=== PATIENT | female | born 1955 | race Caucasian/White ===

== ENCOUNTER 2016-05-29 16:18 | Inpatient (IN) | payer MEDICARE, MEDICAID ==
[2016-05-29 17:34] VITALS: BMI 20.7
[2016-05-29] MEDS ORDERED: MAGNESIUM HYDROXIDE 2,400 MG/10 ML CUP PO PRN (18:01)
[2016-05-29] MEDS ORDERED: ACETAMINOPHEN TAB 325 MG TAB PO PRN (18:01)
[2016-05-29] MEDS ORDERED: MAG HYDROX/AL HYDROX/SIMETH 30 ML CUP PO PRN (18:01)
[2016-05-29] MEDS: LORazepam 1 MG TAB PO PRN (18:52)
[2016-05-29] MEDS: busPIRone HCl 5 MG TAB PO SCH (21:47)
[2016-05-29] MEDS: traZODone HCL 50 MG TAB PO SCH (21:48)
[2016-05-30] MEDS: LORazepam 1 MG TAB PO PRN (07:57)
[2016-05-30 08:17] LABS: Basophils % (A) 1 %; CH 29.5; Eosinophils # (A) 0.2 k/uL (0-0.7); Eosinophils % (A) 5 %; HCT 42.4 % (34.0-46.0); HGB 13.4 gm/dL (11.4-16.0); Luc # (Auto) 0.12; Luc % (Auto) 3; Lymphocytes # (A) 0.9 k/uL (1.0-4.8); Lymphocytes % (A) 26 %; MCH 29.2 pg (25.0-35.0); MCHC 31.5 g/dL (31.0-37.0); MCV 92.7 fL (80.0-100.0); Mean Platelet Volume 7.2; Monocytes # (A) 0.3 k/uL (0-1.0); Monocytes % (A) 9 %; Neutrophils # (A) 1.9 k/uL (1.3-7.7); Neutrophils % (A) 57 %; RBC 4.57 m/uL (3.80-5.40); RDW 12.7 % (11.5-15.5); WBC 3.4 k/uL (3.8-10.6); WBC (Perox) 3.28
[2016-05-30 08:41] LABS: ALT 47 U/L (9-52); AST 21 U/L (14-36); Alkaline Phosphatase 84 U/L (38-126); Anion Gap 9 mmol/L; Blood Urea Nitrogen 18 mg/dL (7-17); Calcium 9.4 mg/dL (8.4-10.2); Carbon Dioxide 30 mmol/L (22-30); Chloride 102 mmol/L (98-107); Glucose 113 mg/dL (74-99); Non-African American GFR(MDRD) >60 (>60 ml/min/1.73 sqM); Potassium 4.2 mmol/L (3.5-5.1); Sodium 141 mmol/L (137-145); Total Bilirubin 0.5 mg/dL (0.2-1.3); Total Protein 7.5 g/dL (6.3-8.2)
[2016-05-30] MEDS: VENLAFAXINE HCL ER 150 MG CAP PO SCH (09:20)
[2016-05-30] MEDS: busPIRone HCl 5 MG TAB PO SCH (09:21)
[2016-05-30] MEDS: VENLAFAXINE HCL ER 75 MG CAP PO SCH (10:00)
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
[2016-05-30 15:52] LABS: Glucose,Whole Blood 104 mg/dL (75-99)
[2016-05-30] MEDS ORDERED: QUEtiapine 50 MG TAB PO PRN (18:10)
[2016-05-30] MEDS: traZODone HCL 50 MG TAB PO SCH (20:21)
[2016-05-30] MEDS ORDERED: LURASIDONE 40 MG TAB PO SCH (21:00)
[2016-05-31] MEDS: hydrOXYzine PAMOATE 25 MG CAP PO PRN (05:51)
[2016-05-31] MEDS: busPIRone HCl 10 MG TAB PO SCH ×2 (08:06→20:00)
[2016-05-31] MEDS: VENLAFAXINE HCL ER 150 MG CAP PO SCH (08:07)
[2016-05-31] MEDS: VENLAFAXINE HCL ER 75 MG CAP PO SCH (08:07)
[2016-05-31] MEDS: DIVALPROEX ER 250 MG TAB.ER.24H PO SCH ×2 (08:07→20:00)
[2016-05-31] MEDS: LORazepam 1 MG TAB PO PRN (08:07)
[2016-05-31 08:09] VITALS: RESP 18
--- NOTE | 2016-05-31 14:44 | P.PN ---
Progress Note - Text CLINICAL PROBLEMS: Patient endorses high anxiety and panic attacks ,reports anticipatory anxiety regarding scheduled family meeting arranged with her SO,she states that she has been feeling worse since started Latuda 4-6 weeks ago,endorses:poor concentration ,feeling tired ,no motivation or ambition. Patient denies any suicidal ideation and rates her anxiety 8/10 ,depression 6 or 7/10 ,ten being the worst I discussed treatment options and her past psychotropic medications ,patient replied "I was stable on Depakote for 14 years and since it discontinued I am having depression and my mood is not stable",patient agreed to restart Depakote instead of Latuda. PER NURSING STAFF: Patient was nervous and anxious this morning and did require 25 mg Vistaril and 1mg Ativan ,patient has demonstrated no self-harm or behavior problem,she has been attending most of groups and milieu activities MENTAL STATUS EXAM: Patient presented as casually,well groomed female,very nervous , pleasant on approach ,tearful at times,speech was spontaneous ,soft tone,goal directed,she is alert and oriented to person ,place and person,she denies suicidal ideation,denies any delusion or hallucinations,no ideas of reference or paranoia,denies hopeless feeling,thought process is organized ,insight and judgment are fair ASSESSMENT: Patient is not able to tolerate anti-psychotic as it is affecting her concentration and motivation ,denies suicidal ideation but still anxious and ruminating about her relationship with her estranged daughter PLAN: 1) Patient agreed to restart Depakote and Buspar 2) Continue Effexor 225 mg daily for depression and anxiety 3)Add Ativan as needed 4) Most likely will discharge to [facility] program Tomorrow depending on clinical response and tolerance
[2016-05-31] MEDS: traZODone HCL 50 MG TAB PO SCH (20:00)
[2016-06-01] MEDS: LORazepam 1 MG TAB PO PRN (00:49)
[2016-06-01 06:24] VITALS: BP 123/60; PULSE 94; TEMP 97.7
[2016-06-01] MEDS: VENLAFAXINE HCL ER 150 MG CAP PO SCH (08:09)
[2016-06-01] MEDS: VENLAFAXINE HCL ER 75 MG CAP PO SCH (08:09)
[2016-06-01] MEDS: busPIRone HCl 10 MG TAB PO SCH (08:09)
[2016-06-01] MEDS: DIVALPROEX ER 250 MG TAB.ER.24H PO SCH (08:09)
[2016-06-01] MEDS: hydrOXYzine PAMOATE 25 MG CAP PO PRN (12:56)
[2016-06-01] MEDS ORDERED: busPIRone HCl 5 MG TAB PO SCH (21:00)
--- NOTE | 2016-06-02 08:48 | DS ---
DATE OF ADMISSION: 05/29/2016 DATE OF DISCHARGE: 06/01/[address] Ronquillo. CONSULT REASON: Medical management. Do you want foreign law consultant provider notified? Yes. DISCHARGE DIAGNOSES: 1. Bipolar disorder type 2, depressed. 2. Anxiety with depression. HOSPITAL COURSE: Patient was admitted to the hospital on voluntary basis due to depression and suicidal ideation and high anxiety. Patient was stable on Effexor and Depakote; however, two months prior to her admission, she did discontinue after her outpatient psychiatrist's advice Depakote due to her loss and she was started on Latuda. Patient has been seeing the same outpatient psychiatrist, Dr. Diana Walsh for the last couple of years. Initially, the patient did endorse feeling depressed over especially with her relationship with estranged daughter that she has not seen her grandchildren for at least 2 years. I did restart the patient on her home medication that was including Effexor 150 mg, BuSpar 15 mg twice a day and Latuda; however, she was getting more tired, confused, complaining that not able to function or read, so I did discuss with her treatment option and she did agree to go back on her Depakote but a lower dose and I did start her on Depakote 250 twice a day. In addition, she did agree to increase her Effexor from 150 mg daily to 225 mg. Patient also continued on Trazodone 50 mg at that time for sleep. She did participate in group therapy activity therapy and was able to receive input regarding cognitive and behavior treatments. Our rn social work had family meeting with patient's significant other of one year and it sounded that he has been very supportive to the patient. For the last couple of days, patient denies any suicidal ideation or any ideation to harm herself or other; however, she was complaining of high anxiety and she always did request p.r.n. Ativan. Even she did ask me prior to her discharge if I can give her prescription for Ativan. Patient was receptive to try alternative treatment for anxiety as meditation or yoga or walking instead of depending on benzodiazepine. MENTAL STATUS EXAMINATION: At the time of discharge, patient is alert. She gives good eye contact, grooming and hygiene excellent, speech is spontaneous and coherent. She denied any homicidal or suicidal ideation, intent or plan. She does not feel hopeless or helpless. There is no evidence of hypomania or natty. There is no evidence of psychosis. Her insight and judgment are improving. Cognitive ability has been stable as she is alert and oriented to person, place and date. There is no verbal or physical aggression toward anyone during her hospitalization. At the time of the discharge, she rates her depression 3 or 4/10 and her anxiety 8/10 by 10 being the worse. IMPRESSION: 1. Bipolar disorder type 2, depressed. Rule out major depression disorder recurrent. Severe without psychosis. 2. Anxiety disorder. PLAN: Patient will discharge from the mental health unit today to return home. Patient will start day hospital [facility] on June 02 for group therapy and individual psychotherapy. Patient will continue on Effexor 225 mg daily, Trazodone 15 mg at bedtime, Depakote 250 mg twice a day, BuSpar 50 mg twice a day. There is no eminent safety risk as the patient is stable to go back to the day program.
== END 2016-06-01 13:04 | disposition home or self-care (01) | DRG 885 ==
LOC: 3MHU 16:59
PROVIDERS: ADMIT Psychiatry & Neurology Psychiatry; ATTEND Psychiatry & Neurology Psychiatry
DX: F33.2 Major depressive disorder, recurrent severe without psychotic features (principal); R45.851 Suicidal ideations; E16.2 Hypoglycemia, unspecified; D72.819 Decreased white blood cell count, unspecified; F41.0 Panic disorder [episodic paroxysmal anxiety]; F41.9 Anxiety disorder, unspecified; Z63.8 Other specified problems related to primary support group; Z86.59 Personal history of other mental and behavioral disorders; Z87.891 Personal history of nicotine dependence; Z91.5 Personal history of self-harm; Z96.641 Presence of right artificial hip joint; Z79.899 Other long term (current) drug therapy; Z82.49 Family history of ischemic heart disease and other diseases of the circulatory system
CPT/HCPCS: 80053; 80178; 84443; 85025; 93005

== ENCOUNTER 2016-06-02 16:52 | Inpatient (IN) | payer MEDICARE, OTHER ==
[2016-06-02] MEDS ORDERED: NALOXONE 0.4 MG/ML 1 ML VIAL IV PRN (17:33)
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
[2016-06-02] MEDS: SODIUM CHLORIDE 0.9% 1,000 ML IV SCH (21:29)
[2016-06-02] MEDS: ENOXAPARIN 40 MG/0.4 ML SYRINGE SQ SCH (21:32)
[2016-06-02] MEDS: VENLAFAXINE HCL ER 75 MG CAP PO SCH (21:32)
[2016-06-02] MEDS: traZODone HCL 50 MG TAB PO SCH (21:32)
[2016-06-02] MEDS: busPIRone HCl 5 MG TAB PO SCH (21:32)
[2016-06-02] MEDS: DIVALPROEX ER 250 MG TAB.ER.24H PO SCH (21:32)
[2016-06-02 21:53] VITALS: BMI 21.9
[2016-06-02] MEDS: LORazepam 2 MG/ML SYRINGE IV PRN (23:09)
[2016-06-03] MEDS: SODIUM CHLORIDE 0.9% 1,000 ML IV SCH ×2 (05:37→17:17)
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
[2016-06-03] MEDS ORDERED: VENLAFAXINE HCL ER 150 MG CAP PO SCH (09:00)
[2016-06-03] MEDS: ENOXAPARIN 40 MG/0.4 ML SYRINGE SQ SCH (09:00)
[2016-06-03] MEDS: busPIRone HCl 5 MG TAB PO SCH ×2 (09:00→21:40)
[2016-06-03] MEDS: DIVALPROEX ER 250 MG TAB.ER.24H PO SCH ×2 (09:00→21:40)
--- NOTE | 2016-06-03 15:04 | DS ---
DATE OF ADMISSION: 06/02/2016 DATE OF DISCHARGE: 06/03/2016 FINAL DIAGNOSES: 1. Bipolar type II with major depression with some suicidal ideations. 2. Acute metabolic encephalopathy from side effect of medication on presentation. 3. Anxiety disorder. 4. Mild leukopenia. 5. Primary osteoarthritis of multiple joints, bilateral. 6. Overdose with Unisom. CONSULTATION: Dr. Hoffman. HOSPITAL COURSE: This patient was just discharged from psychiatry unit, presented with acute metabolic encephalopathy. It was later discovered through her boyfriend that the patient had overdosed with Unisom at home. Patient seen by Dr. Ryder from psychiatry with whom I early discussed the care of the patient and she will be accepted to patient should be psychiatric unit. Patient will be accepted to the psychiatry unit. Patient is a bit more awake now. Did tolerate some diet. Patient has a sitter at the bedside. On exam, lungs are clear. CARDIOVASCULAR: First and second sounds are normal. CURRENT MEDICATIONS: 1. Venlafaxine ER 150 mg p.o. daily. 2. ( )50 mg p.o. b.i.d. 3. Desyrel 50 mg p.o. q.h.s. 4. Depakote ER 250 mg b.i.d. 5. Effexor XR 75 p.o. q.h.s. DISPOSITION: 3-[facility] psych unit at [facility]. ACCEPTING PHYSICIAN: Dr. Ryder from psychiatry. Patient should follow up with Keerthi Styles after discharge from [facility]. Discharge planning more than 35 minutes.
[2016-06-03] MEDS: LORazepam 2 MG/ML SYRINGE IV PRN (15:36)
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
[2016-06-03] MEDS: VENLAFAXINE HCL ER 75 MG CAP PO SCH (21:40)
[2016-06-03] MEDS: traZODone HCL 50 MG TAB PO SCH (21:41)
[2016-06-03 22:09] VITALS: BP 124/60; PULSE 78; RESP 18; TEMP 97.6
== END 2016-06-03 22:12 | DRG 917 ==
LOC: EC 16:52 → 3OBS 17:33 → OBSVTOIN 17:33 → 3SUR 20:58
PROVIDERS: ADMIT Hospitalist; ATTEND Hospitalist
DX: T45.0X4A Poisoning by antiallergic and antiemetic drugs, undetermined, initial encounter (principal); G92 Toxic encephalopathy; R45.851 Suicidal ideations; F31.81 Bipolar II disorder; D72.819 Decreased white blood cell count, unspecified; R26.2 Difficulty in walking, not elsewhere classified; F41.9 Anxiety disorder, unspecified; R53.1 Weakness; M19.91 Primary osteoarthritis, unspecified site; Z82.49 Family history of ischemic heart disease and other diseases of the circulatory system; Z87.891 Personal history of nicotine dependence; Z96.641 Presence of right artificial hip joint; Z86.39 Personal history of other endocrine, nutritional and metabolic disease; Z87.828 Personal history of other (healed) physical injury and trauma; Z79.899 Other long term (current) drug therapy; Y92.009 Unspecified place in unspecified non-institutional (private) residence as the place of occurrence of the external cause
CPT/HCPCS: 80164; 80306; 99285

== ENCOUNTER 2016-06-03 22:27 | Inpatient (IN) | payer MEDICARE, MEDICAID ==
[2016-06-04] MEDS ORDERED: MAGNESIUM HYDROXIDE 2,400 MG/10 ML CUP PO PRN (05:54)
[2016-06-04] MEDS ORDERED: MAG HYDROX/AL HYDROX/SIMETH 30 ML CUP PO PRN (05:54)
[2016-06-04] MEDS ORDERED: ACETAMINOPHEN TAB 325 MG TAB PO PRN (05:54)
[2016-06-04 06:05] VITALS: BMI 21.5
[2016-06-04] MEDS: LORazepam 1 MG TAB PO PRN ×2 (07:44→15:57)
[2016-06-04] MEDS: VENLAFAXINE HCL ER 75 MG CAP PO SCH (09:49)
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
--- NOTE | 2016-06-04 15:38 | HP ---
DATE OF ADMISSION: CHIEF COMPLAINT: Acute depression. HISTORY OF PRESENT ILLNESS: This is a 61-year-old female with past medical history significant for depression, presents to the hospital with worsening depression. Patient currently is denying chest pain, shortness breath, nausea, vomiting, abdominal pain, dizziness, lightheadedness, or blurry vision. REVIEW OF SYSTEMS: All 14 systems reviewed and negative except as above. ALLERGIES: No known drug allergies. CURRENT MEDICATIONS: 1. Tylenol as needed. 2. Ativan 1 mg every 8 hours as needed. 3. Effexor 225 mg p.o. daily. 4. Seroquel 50 mg q.h.s. Patient said that she was taking Effexor, buspirone, Latuda and BuSpar at home. PAST MEDICAL AND SURGICAL HISTORY: 1. Bipolar disorder. 2. Anxiety. 3. Depression. 4. Partial right hip arthroplasty. SOCIAL HISTORY: The patient quit smoking 30 years ago. Denied alcohol or drug abuse. FAMILY HISTORY: Positive for alcoholism in her father. Hypertension and congestive heart failure and healthy daughter. Patient is . IMAGING AND LABS: None. PHYSICAL EXAMINATION: VITAL SIGNS: 97.9, heart rate of 85, respiratory rate 15, blood pressure 116/74 and saturations above 90% on room air. GENERAL: In her stated age, no acute distress. HEENT: Atraumatic, normocephalic. PERRLA. LUNGS: Clear to auscultation bilaterally. HEART: Normal S1, S2. ABDOMEN: Soft, no tenderness. Positive bowel sounds in all 4 quadrants. LOWER EXTREMITY: No edema. PSYCH: Alert and oriented x3, relaxed mood and affect. NEURO: No focal deficit. Cranial nerves 2 through 12 are intact. ASSESSMENT AND PLAN: 1. Acute depression. We will continue per your recommendation. 2. Anxiety, on Ativan. 3. History of partial right hip arthroplasty, seems to be no pain. We will follow up on the patient on periodic basis per your request.
[2016-06-04] MEDS: QUEtiapine 50 MG TAB PO SCH (21:03)
[2016-06-05] MEDS: VENLAFAXINE HCL ER 75 MG CAP PO SCH (08:36)
[2016-06-05] MEDS: LORazepam 1 MG TAB PO PRN ×2 (08:49→16:54)
--- NOTE | 2016-06-05 13:26 | P.PN ---
Progress Note - Text SUBJECTIVE: She complained of feeling "extremely depressed", helpless and hopeless. She has not been attending group activities because she stated she is unable to concentrate or follow the group conversation. She slept well last night with a 50 mg dose of Seroquel. She inquired about her prior medications and requested to continue with Depakote. We discussed bedtime dosing regimen then split dosing. OBJECTIVE: She presented as a thin almost emaciated. Appearing 61-year-old female. She maintained eye contact and attended to the interview. She had a distressed facial expression. She was alert and oriented to person, place and time. She showed psychomotor retardation but no abnormal movements. Her gait was slow but steady. She began to cry during the interview when she talked about her family particularly her mother and father. Her speech was spontaneous with decreased rate, rhythm and volume. Her affect was depressed and anxious. She denied current suicidal ideation or wishes. She denied homicidal ideation. She expressed depressive cognitions including helplessness , hopelessness and worthlessness. She complained of feeling anxious and restless. She denied ideas of reference or paranoid ideation. Her thinking was concrete but her associations were coherent and logical. ASSESSMENT: She continues to have severe symptoms of depression but is currently denying suicidal ideation or wishes. She has shown minimal response to treatment since admission. PLAN: Continue Effexor XR 225 mg daily and Seroquel 50 mg at bedtime, restart Depakote 500 mg at bedtime. Continue suicide precautions with 15 minute checks. Encourage participation in therapeutic groups and activities. Evaluate clinical status and response to treatment on a daily basis.
[2016-06-05] MEDS: QUEtiapine 50 MG TAB PO SCH (20:55)
[2016-06-05] MEDS ORDERED: DIVALPROEX ER 500 MG TAB.ER.24H PO SCH (21:00)
[2016-06-06] MEDS: LORazepam 0.5 MG TAB PO PRN (09:48)
[2016-06-06] MEDS: VENLAFAXINE HCL ER 75 MG CAP PO SCH ×2 (09:58→11:08)
[2016-06-06] MEDS ORDERED: VENLAFAXINE HCL ER 75 MG CAP PO STA (11:08)
--- NOTE | 2016-06-06 13:39 | P.PN ---
Subjective Principal diagnosis: SUBJECTIVE: She complained of feeling depressed ,confused helpless and hopeless. She has not been attending group activities because she stated she is unable to concentrate or follow the group conversation. She slept well last night with a 50 mg dose of Seroquel. She stated that her boyfriend visited her last night and her daughter called her "That is why I felt better last night ", she could not recall today date ,more forgetful since she overdosed on Unisom, she endorses passive suicidal ideation saying "I want to go to sleep and not waking up",she stated that she was hearing noises last couple of days,she endorses high anxiety and "Feeling paralysed with anxiety,I need higher dose of Ativan". OBJECTIVE: 61-year-old female maintained eye contact and attended to the interview. She was alert and oriented to person, place and time. She showed psychomotor retardation but no abnormal movements. Her gait was slow but steady. She was tearful talking about relationship with daughter. Her speech was spontaneous with decreased rate, rhythm and volume. Her affect was depressed and anxious. She endorses passive wishes. She denied homicidal ideation. She expressed depressive cognitions including helplessness, hopelessness and worthlessness. She complained of feeling anxious and confused She denied ideas of reference or paranoid ideation. She denies any visual or auditory hallucination,insight and judgment are limited ASSESSMENT: She continues to have severe symptoms of depression and anxiety , PLAN: Increase Effexor XR 300 mg daily ,continue Seroquel 50 mg at bedtime, Increased Depakote 750 mg at bedtime. Continue suicide precautions with 15 minute checks. Encourage participation in therapeutic groups and activities. Evaluate clinical status and response to treatment on a daily basis.I called patient boyfriend who stated that patient had at least 3-4 previous suicidal attempts over last 15 years but "Always minimizing it " Objective - Vital Signs Vital signs: Vital Signs Temp 98.0 F 06/06/16 07:06 Pulse 79 06/06/16 07:06 Resp 18 06/06/16 07:06 BP 115/57 06/06/16 07:06 Pulse Ox
[2016-06-06] MEDS: QUEtiapine 50 MG TAB PO SCH (20:17)
[2016-06-06] MEDS ORDERED: DIVALPROEX ER 250 MG TAB.ER.24H PO SCH (21:00)
[2016-06-07] MEDS: LORazepam 0.5 MG TAB PO PRN ×2 (08:29→16:47)
[2016-06-07] MEDS: VENLAFAXINE HCL ER 75 MG CAP PO SCH (08:29)
--- NOTE | 2016-06-07 14:00 | P.PN ---
Subjective SUBJECTIVE: Patient endorses hopeless ,helpless feeling , wish,isolating herself , crying episodes,no interest ,poor appetite ,laying in bed most of day ,minimal participation in milieu activities,endorses high anxiety and fear of "Not getting better",reports poor concentration and "Very foggy",trembling feeling and not able to maintain her attention Patient was agitated and irritable this morning ,she said"I Threw by breakfast tray ,I am having bad anxiety and no one helping me" OBJECTIVE: 61-year-old female maintained eye contact and attended to the interview. She was alert and oriented to person, place and time. She showed psychomotor agitation abnormal movements. Her gait was slow but steady. She was sobbing . Her speech was spontaneous with decreased rate, rhythm and volume. Her affect was depressed and anxious. She endorses passive wishes. She denied homicidal ideation. She expressed depressive cognitions including helplessness, hopelessness and worthlessness. She complained of feeling anxious and confused She denied ideas of reference or paranoid ideation. She denies any visual or auditory hallucination,insight and judgment are limited. ASSESSMENT: Patient endorses severe depression and suicidal ideation ,no change in her clinical status since her admission ,patient presents with pattern of instable mood ,feeling helpless when alone and needs others to assume responsibility to make feel better PLAN: Continue Effexor and Seroquel ,same dose ,discontinue Depakote and start [place] ,PRN Ativan ,will try to have collateral information from her outpatient counselor at [facility],encourage milieu participation Objective - Vital Signs Vital signs: Vital Signs Temp 98.3 F 06/07/16 06:31 Pulse 106 H 06/07/16 06:31 Resp 16 06/07/16 06:31 BP 106/56 06/07/16 06:31 Pulse Ox
[2016-06-07] MEDS: QUEtiapine 50 MG TAB PO SCH (21:35)
[2016-06-07] MEDS: LITHIUM CARBONATE 150 MG CAP PO SCH (21:35)
[2016-06-08] MEDS: VENLAFAXINE HCL ER 75 MG CAP PO SCH (08:41)
[2016-06-08] MEDS: LITHIUM CARBONATE 150 MG CAP PO SCH (08:41)
[2016-06-08] MEDS: LORazepam 0.5 MG TAB PO PRN ×2 (08:47→18:25)
--- NOTE | 2016-06-08 09:34 | P.PN ---
Subjective Principal diagnosis: SUBJECTIVE: She complained of feeling depressed , helpless and hopeless this morning "I wake up with very bad anxiety and I just want to stay in bed " ,she reports that she was doing better last evening and was able to concentrate playing cards and "I enjoyed it but now I am back feeling hopeless",,,able to sleep with Seroquel ,still asking for PRN Ativan ,at least 2-3 times ,reports having difficulty making simple decision ,self doubt and feeling detached from others OBJECTIVE: 61-year-old female maintained eye contact and attended to the interview. She was alert and oriented to person, place and time. She showed psychomotor retardation but no abnormal movements. Her gait was slow but steady. Her speech was spontaneous with decreased rate, rhythm and volume. Her affect was depressed and anxious. She endorses passive wishes. She denied homicidal ideation. She expressed depressive cognitions including helplessness, hopelessness and worthlessness. She complained of feeling anxious and confused She denied ideas of reference or paranoid ideation. She denies any visual or auditory hallucination,insight and judgment are limited.No anger outburst or behavior problem ASSESSMENT: She continues to have severe symptoms of depression and anxiety , diurnal variation ,lot of dependency issues,still requesting PRN Ativan, not motivated to take active role in her treatment PLAN:Continue Effexor and Seroquel ,same ,Increase [place] ,will check level in 2-3 days ,encourage groups participation Objective - Vital Signs Vital signs: Vital Signs Temp 98.3 F 06/08/16 05:36 Pulse 101 H 06/08/16 05:36 Resp 18 06/08/16 05:36 BP 107/53 06/08/16 05:36 Pulse Ox
[2016-06-08] MEDS: LITHIUM CARBONATE 300 MG CAP PO SCH (20:15)
[2016-06-08] MEDS: QUEtiapine 50 MG TAB PO SCH (20:15)
[2016-06-09] MEDS: LITHIUM CARBONATE 300 MG CAP PO SCH ×2 (09:12→20:11)
[2016-06-09] MEDS: VENLAFAXINE HCL ER 75 MG CAP PO SCH (09:12)
[2016-06-09] MEDS: CHOLECALCIFEROL 1,000 UNIT TAB PO SCH (09:12)
[2016-06-09 12:35] LABS: Lithium 0.8 mmol/L
[2016-06-09] MEDS: LORazepam 0.5 MG TAB PO PRN (15:44)
--- NOTE | 2016-06-09 16:41 | P.PN ---
Subjective SUBJECTIVE: Patient stated "I am the same ,very bad depression ,I do not know what to do with myself",hopeless ,helpless ,tearful , Patient has been labile ,lot of dependency issue,she stated that her boy friend came to visit yesterday but "I did not have any feeling ,I was blah",rates her anxiety and depression ,both 12/22 OBJECTIVE: 61-year-old female maintained eye contact and attended to the interview. She was alert and oriented to person, place and time. She showed psychomotor retardation but no abnormal movements. Her gait was slow but steady. Her speech was spontaneous with decreased rate, rhythm and volume. Her affect was depressed and anxious. She endorses passive wishes. She denied homicidal ideation. She expressed depressive cognitions including helplessness, hopelessness and worthlessness. She complained of feeling anxious and confused She denied ideas of reference or paranoid ideation. She denies any visual or auditory hallucination,insight and judgment are limited.No anger outburst or behavior problem PER NURSING STAFF:"Patient feeling sad and depressed and so tearful. Supported patient and offered ideas on support groups and hobbies and diversional activities. The person did listen but then said "I feel so bad I am going in a dark place." Again reenforced the positives and also gave Ativan 1 mg po prn give ASSESSMENT: She continues to have severe symptoms of depression and anxiety , diurnal variation ,lot of dependency issues,still requesting PRN Ativan, not motivated to take active role in her treatment PLAN:Continue Effexor and Seroquel ,same ,check lithium and TSH ,encourage groups participation Objective - Vital Signs Vital signs: Vital Signs Temp 98.2 F 06/09/16 06:45 Pulse 95 06/09/16 15:47 Resp 18 06/09/16 15:47 BP 128/57 06/09/16 15:47 Pulse Ox
[2016-06-09] MEDS: QUEtiapine 50 MG TAB PO SCH (20:11)
[2016-06-10] MEDS: LORazepam 0.5 MG TAB PO PRN ×2 (04:26→17:00)
[2016-06-10] MEDS: LITHIUM CARBONATE 300 MG CAP PO SCH ×2 (08:54→18:21)
[2016-06-10] MEDS: VENLAFAXINE HCL ER 75 MG CAP PO SCH (09:54)
--- NOTE | 2016-06-10 10:16 | P.PN ---
Subjective SUBJECTIVE: "I AM STILL DEPRESSED ESPECIALLY IN MORNING",she reports that she is afraid that she will never get better and "My boyfriend will leave me because of my mental illness",she endorses:crying episodes,poor concentration ,no energy , helpless and hopeless ,still having trouble staying asleep and was up at 4 AM with "BAD ANXIETY",participating in groups and milieu activities,able to contract for safety inside hospital. We discussed suicide safety plan but she states that "I do not feel comfortable to go home ,I am scared to be3 home on my own" PER NURSING STAFF: Patient was sobbing ,irritable and did require PRN Ativan after lunch yesterday OBJECTIVE: 61-year-old female maintained eye contact and attended to the interview. She was alert and oriented to person, place and time. She showed psychomotor retardation but no abnormal movements. Her gait was slow but steady. Her speech was spontaneous with decreased rate, rhythm and volume. Her affect was depressed and anxious. She endorses passive wishes. She denied homicidal ideation. She expressed depressive cognitions including helplessness, hopelessness and worthlessness. She complained of feeling anxious and has self doubt She denied ideas of reference or paranoid ideation. She denies any visual or auditory hallucination,insight and judgment are limited.No anger outburst or behavior problem ASSESSMENT: She continues to have severe symptoms of depression and anxiety , diurnal variation ,lot of dependency issues,still requesting PRN Ativan, not motivated to take active role in her treatment PLAN:,1) Increase [place] level:0.8 , will check lithium level again on Monday 2)Change Seroquel to XR ,continue Effexor 300 mg 3) Encourage groups participation and how to take active role in her treatment Objective - Vital Signs Vital signs: Vital Signs Temp 97.4 F L 06/10/16 05:23 Pulse 94 06/10/16 05:23 Resp 15 06/10/16 05:23 BP 97/56 06/10/16 05:23 Pulse Ox
[2016-06-10] MEDS: CHOLECALCIFEROL 1,000 UNIT TAB PO SCH (12:54)
[2016-06-10] MEDS ORDERED: LITHIUM CARBONATE ER 450 MG TABLET.ER PO SCH (21:00)
[2016-06-11] MEDS: LITHIUM CARBONATE ER 450 MG TABLET.ER PO SCH (09:39)
[2016-06-11] MEDS: VENLAFAXINE HCL ER 75 MG CAP PO SCH (09:39)
[2016-06-11] MEDS: LORazepam 0.5 MG TAB PO PRN (11:28)
--- NOTE | 2016-06-11 12:03 | P.PN ---
Progress Note - Text Interval history: Patient seen in cross coverage today for Dr. Ryder. She reports that she feels depressed today. She says the first couple nights was Seroquel XR she slept better, but the last 2 nights not as well. She does not seem to voice any adverse psychotropic medication side effects. Her Effexor XR and lithium have been increased. She describes having an episode earlier today in group where she just felt overwhelmed Mental status exam: She is alert and cooperative with the interview. Her speech is fluent, not rapid or pressured. Her affect overall is restricted. Her mood is depressed. Regarding thoughts of suicide she relays that she has some thoughts at times about just wanting to go to sleep, but no actual thoughts of suicide. She denies any thoughts of harm to others. No evidence of psychosis or agitation. Plan: Patient will maintain current psychotropic medications. She is given further education and encouragement. We will monitor for any medication side effects and monitor her ongoing response. We'll continue to cover this patient for Dr. Ryder through the weekend.
[2016-06-11] MEDS: CHOLECALCIFEROL 1,000 UNIT TAB PO SCH (12:35)
[2016-06-11] MEDS: LITHIUM CARBONATE 300 MG CAP PO SCH (18:39)
[2016-06-12] MEDS: LORazepam 0.5 MG TAB PO PRN ×3 (04:18→20:58)
[2016-06-12] MEDS: LITHIUM CARBONATE ER 450 MG TABLET.ER PO SCH (09:25)
[2016-06-12] MEDS: VENLAFAXINE HCL ER 75 MG CAP PO SCH (09:25)
[2016-06-12] MEDS: CHOLECALCIFEROL 1,000 UNIT TAB PO SCH (12:22)
--- NOTE | 2016-06-12 12:39 | P.PN ---
Progress Note - Text Interval history: Patient is seen in cross coverage today for Dr. Ryder. She reports that her mood is a little better today compared to yesterday. It was more down early this morning and she reports she had some thoughts about not waking up, but currently is doing better. She reports that she didn't sleep well again last night. She does not seem to voice any adverse psychotropic medication side effects. She does seem to continue describe some anxiety. Mental status exam: She is alert and cooperative with the interview. She does not show any agitation. Her mood she describes is better today but still depressed and feels like her mood still could be better. She denies any current thoughts of harm to self or others. No active evidence of psychosis. She does show some range of affect. Plan: We'll titrate up on Seroquel XR to 100 mg at 7 PM to help augment regarding depression and would look for this also to help her with sleep. Maintain other current psychotropic medication regimen. Dr. Ryder to resume care this patient starting tomorrow.
--- NOTE | 2016-06-12 12:58 | P.PN ---
Progress Note - Text Addendum note: Met with patient again to discuss interaction of Seroquel XR and Effexor XR in terms of risk of prolongation of QT interval. Patient's QTC was 447, not prolonged on recent EKG. Discussed with patient regarding monitoring for any abnormalities side effect [place] as well as continuing to monitor the EKG on follow-up with this medication combination.
[2016-06-12] MEDS: LITHIUM CARBONATE 300 MG CAP PO SCH (19:27)
[2016-06-13] MEDS: VENLAFAXINE HCL ER 75 MG CAP PO SCH (08:58)
[2016-06-13] MEDS: LITHIUM CARBONATE ER 450 MG TABLET.ER PO SCH (08:58)
[2016-06-13] MEDS: CHOLECALCIFEROL 1,000 UNIT TAB PO SCH (09:00)
[2016-06-13] MEDS: LORazepam 0.5 MG TAB PO PRN ×2 (11:14→20:44)
[2016-06-13 11:16] VITALS: RESP 18
[2016-06-13] MEDS ORDERED: LORazepam 0.5 MG TAB PO STA (12:04)
--- NOTE | 2016-06-13 14:55 | P.PN ---
Progress Note - Text Interval history: She reports that she feels less depressed today. She says the first couple nights was Seroquel XR she slept better, but the last 2 nights not as well. She does not seem to voice any adverse psychotropic medication side effects. She endorses high anxiety and has been taking up to 0.5 mg TID PRN Ativan,lot of dependency issues Mental status exam: She is alert and cooperative with the interview. Her speech is fluent, not rapid or pressured. Her affect overall is restricted. Her mood is depressed. She denies thoughts of suicide. She denies any thoughts of harm to others. No evidence of psychosis or agitation. Plan: Patient will maintain current psychotropic medications. She is given further education and encouragement. We will monitor for any medication side effects Met with patient ,boyfriend and SW :discussed post-discharge plan and boyfriend will dispense medications on daily basis.Boy friend does feel comfortable regarding discharge
[2016-06-13] MEDS: LITHIUM CARBONATE 300 MG CAP PO SCH (18:50)
[2016-06-14 06:13] VITALS: BP 116/60; PULSE 102; TEMP 98.2
[2016-06-14] MEDS: LORazepam 0.5 MG TAB PO PRN (07:22)
--- NOTE | 2016-06-14 11:10 | DS ---
DATE OF ADMISSION: 06/03/2016 DATE OF DISCHARGE: 06/14/2016 CONSULT PHYSICIAN: Melyssa. CONSULTING PROVIDER: Dr. Jannette Carreon Consult reason is for medical management. DISCHARGE DIAGNOSES: 1. Major depression, recurrent, severe without psychotic feature in early remission. 2. History of bipolar disorder, type I2, depressed, without psychotic feature. 3. Cluster B personality trait B. 4. Anxiety disorder. BRIEF SUMMARY OF THE ADMISSION NOTE: Patient was admitted to the medical health unit from the medical floor after being seen in psychiatric consultation. Patient was recently on the mental health unit with depression and anxiety and was discharged with the postdischarge plan to start [facility] [facility] program; however, she was complaining of not able to sleep and she took "handful of [place]." For complete history and physical examination please refer to history and physical examination dictated by Dr. Murphy. HOSPITAL COURSE: Patient was admitted on voluntary basis. She presented with severe depression without any evidence of psychosis and very high anxiety. She was started back on her Effexor that was increased from 225 to 300 mg daily and we discontinued Depakote and trazodone, and we did start her on combination of Seroquel for sleep and also as augmentation for her depression. Patient has a lot of dependency issues and for the first 4 or 5 days she was just crying, sobbing, asking for Ativan more often. She did agree to start lithium after complete work-up and we did check her lithium 1evel, it came back on 600 mg daily 0.8, so I did adjust the lithium again to 450 mg in the morning and 300 at bedtime instead of 300 twice a day. Patient was able to tolerate Effexor and lithium without having any complaint from side effect. However, she was still having trouble staying asleep and she was waking up in the morning with severe anxiety, so we did change the regular Seroquel to Seroquel XR and we increased it to Seroquel XR 100 mg at bedtime to control her anxiety and also to restore her sleep. I did discuss in detail interaction of Seroquel XR and Effexor-XR in term of prolongation of QT. Her QT was not prolonged on the recent EKG, but we did discuss in detail to monitor for any abnormality of side effect and also to continue to monitor her EKG as outpatient, especially with the combination of Effexor and Seroquel XR. Patient did verbalize understanding. The patient was requesting Ativan more often than usual, so we did cut down the Ativan, instead of 1 mg 3 times a day as needed to just 0.5 three times p.r.n. Patient started to participate in group therapy and for 4 days prior to her discharge, her mood was stable, there is no anger outbursts or irritability, was able to sleep through the night with the Seroquel XR 100 mg at bedtime. She participated in our session and was able to receive input regarding cognitive reframing and old assumption that she may be ( ). I had family meeting with her boyfriend who is living in the same building and he stated that he does feel comfortable regarding patient discharge. Also, he will be the one to dispense patient medication on daily basis. Psychoeducation about patient mental illness was offered and patient did agree about the postdischarge plan to start [facility]. However, even prior to her discharge, she did ask for Ativan for her anxiety. The mental status examination at the time of the discharge, patient is alert. She gives good eye contact, excellent grooming and hygiene. Speech is spontaneous. Thought process is linear. She denied any homicidal or suicidal ideation, intent or plan. She does not feel hopeless or helpless. She does not have access to firearms. She did demonstrate future-oriented thinking, listing a number of things she wishes to accomplish after discharge. There is no evidence of hypomania or natty. There is no evidence of psychosis. She did rate her depression 3/10, 10 being the worse and her anxiety 5 or 6/10, 10 being the worst. Her insight and judgment are improving. Her cognitive abilities have remained stable across the hospitalization as she is alert, oriented to person, place and date. PLAN: 1. Patient was discharged this morning and she has been taken appointment at [facility] to start partial day program. 2. Patient was given one week supply of Ativan 0.5 three times a day as needed p.r.n. #21 tablet. 3. Effexor 300 mg daily for depression and anxiety for one-month supply. 4. [place] carbonate extended release 450 mg in the morning and lithium carbonate 300 at bedtime, one-month supply. 5. Seroquel XR 100 mg at 7 p.m. one-month supply. 6. The patient is no eminent safety risk for transition back to outpatient care. I did discuss with her suicidal safety plan and she was instructed to return to the emergency room with any acute safety concerns. Prognosis fair with continued treatment and followup with our recommendation.
== END 2016-06-14 07:52 | disposition home or self-care (01) | DRG 885 ==
LOC: 3MHU 22:27
PROVIDERS: ADMIT Psychiatry & Neurology Psychiatry; ATTEND Psychiatry & Neurology Psychiatry
DX: F33.2 Major depressive disorder, recurrent severe without psychotic features (principal); G93.41 Metabolic encephalopathy; F03.90 Unspecified dementia, unspecified severity, without behavioral disturbance, psychotic disturbance, mood disturbance, and anxiety; R45.851 Suicidal ideations; F41.9 Anxiety disorder, unspecified; M19.91 Primary osteoarthritis, unspecified site; D72.819 Decreased white blood cell count, unspecified; Z87.891 Personal history of nicotine dependence; Z91.5 Personal history of self-harm; Z86.59 Personal history of other mental and behavioral disorders; Z81.8 Family history of other mental and behavioral disorders; Z96.641 Presence of right artificial hip joint; Z81.1 Family history of alcohol abuse and dependence; Z82.49 Family history of ischemic heart disease and other diseases of the circulatory system; Z79.899 Other long term (current) drug therapy; Z63.79 Other stressful life events affecting family and household; Z63.8 Other specified problems related to primary support group; Z86.39 Personal history of other endocrine, nutritional and metabolic disease
CPT/HCPCS: 80178; 84443; 93005

== ENCOUNTER 2016-08-20 12:10 | Emergency (ER) | payer MEDICARE, OTHER ==
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
[2016-08-20 18:14] LABS: Basophils % (A) 0 %; CH 30.6; CHCM 32.1; Eosinophils % (A) 0 %; HDW 2.19; Luc # (Auto) 0.08; Luc % (Auto) 1; Lymphocytes # (A) 1.1 k/uL (1.0-4.8); Lymphocytes % (A) 15 %; MCH 31.1 pg (25.0-35.0); MCHC 32.5 g/dL (31.0-37.0); MCV 95.6 fL (80.0-100.0); Mean Platelet Volume 6.7; Monocytes # (A) 0.4 k/uL (0-1.0); Monocytes % (A) 6 %; Neutrophils # (A) 5.7 k/uL (1.3-7.7); Neutrophils % (A) 77 %; RBC 4.49 m/uL (3.80-5.40); RDW 13.6 % (11.5-15.5); WBC 7.4 k/uL (3.8-10.6); WBC (Perox) 7.53
[2016-08-20 18:31] LABS: ALT 14 U/L (9-52); AST 22 U/L (14-36); Alkaline Phosphatase 58 U/L (38-126); Anion Gap 8 mmol/L; Blood Urea Nitrogen 10 mg/dL (7-17); Calcium 9.6 mg/dL (8.4-10.2); Carbon Dioxide 32 mmol/L (22-30); Chloride 97 mmol/L (98-107); Glucose 167 mg/dL (74-99); Non-African American GFR(MDRD) >60 (>60 ml/min/1.73 sqM); Potassium 3.7 mmol/L (3.5-5.1); Sodium 137 mmol/L (137-145); Total Bilirubin 0.4 mg/dL (0.2-1.3); Total Protein 6.9 g/dL (6.3-8.2)
[2016-08-20] MEDS ORDERED: traZODone HCL 100 MG TAB PO STA (21:17)
[2016-08-20] MEDS ORDERED: clonazePAM 0.5 MG TAB PO STA (21:17)
[2016-08-21 07:45] VITALS: RESP 18
[2016-08-21 12:30] VITALS: BP 123/73; PULSE 85; TEMP 97.3
== END 2016-08-21 13:01 ==
LOC: EC 12:10
DX: R45.851 Suicidal ideations (principal); F31.9 Bipolar disorder, unspecified; F41.9 Anxiety disorder, unspecified; Z87.891 Personal history of nicotine dependence; Z79.899 Other long term (current) drug therapy
CPT/HCPCS: 36415; 80053; 80306; 82075; 85025; 99285

== ENCOUNTER → 2017-08-03 | Outpatient (CLI) | payer MEDICARE, OTHER ==
--- NOTE | 2017-08-03 14:43 | MM ---
Reason for exam: screening (asymptomatic). Last mammogram was performed 2 years and 5 months ago. History: Patient is postmenopausal. Family history of breast cancer in paternal cousin at age 50, breast cancer in paternal aunt at age 50, and breast cancer in paternal grandmother at age 50. Physical Findings: A clinical breast exam by your physician is recommended on an annual basis and results should be correlated with mammographic findings. MG Screening Mammo w CAD Bilateral CC and MLO view(s) were taken. Prior study comparison: March 10, 2015, mammogram, performed at [facility]. February 05, 2014, mammogram, performed at [facility]. September 28, 2012, mammogram, performed at [facility]. September 09, 2011, mammogram, performed at [facility]. September 06, 2010, mammogram, performed at [facility]. Stable benign calcifications. There is no discrete abnormality. No significant changes when compared with prior studies. ASSESSMENT: Benign, BI-RAD 2 RECOMMENDATION: Routine screening mammogram of both breasts in 1 year.
== END | disposition home or self-care (01) ==
LOC: EEVIPCON 09:00 → RADMAMWWP 09:01
PROVIDERS: ATTEND Internal Medicine
DX: Z12.31 Encounter for screening mammogram for malignant neoplasm of breast (principal)
CPT/HCPCS: 77067

== ENCOUNTER 2018-05-08 14:56 | Emergency (ER) | payer MEDICARE, OTHER ==
[2018-05-08 15:09] LABS: Glucose,Whole Blood 141 mg/dL (75-99)
[2018-05-08] MEDS ORDERED: LORazepam 2 MG/ML INJ IV STA (15:17)
[2018-05-08] MEDS ORDERED: SODIUM CHLORIDE 0.9% 1,000 ML IV STA (15:21)
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
[2018-05-08 15:48] LABS: Anion Gap 11 mmol/L; Blood Urea Nitrogen 10 mg/dL (7-17); Calcium 10.1 mg/dL (8.4-10.2); Carbon Dioxide 24 mmol/L (22-30); Chloride 104 mmol/L (98-107); Glucose 149 mg/dL (74-99); Sodium 139 mmol/L (137-145)
--- NOTE | 2018-05-08 16:05 | XR ---
EXAMINATION TYPE: XR chest 2V DATE OF EXAM: 05/08/2018 COMPARISON: NONE HISTORY: Difficulty breathing TECHNIQUE: Frontal and lateral views of the chest are obtained. FINDINGS: There is no heart failure nor confluent pneumonic infiltrate. There are calcified granulom esau at the pulmonary edilma and mediastinum. Heart size is normal. There is no pleural effusion. There are chest leads. Bony thorax is intact. IMPRESSION: Old granulomatous disease. No active cardiopulmonary disease.
[2018-05-08 16:16] LABS: HGB 15.3 gm/dL (11.4-16.0); MCH 29.6 pg (25.0-35.0); MCHC 32.5 g/dL (31.0-37.0); MCV 91.2 fL (80.0-100.0); Mean Platelet Volume 6.2; Platelet Count 345 k/uL (150-450); RBC 5.15 m/uL (3.80-5.40); RDW 12.4 % (11.5-15.5); WBC 6.9 k/uL (3.8-10.6)
[2018-05-08 17:06] VITALS: BP 108/71; PULSE 93; RESP 18; TEMP 98.1
[2018-05-09 11:29] LABS: Hemoglobin A1C 5.5 % (4.0-6.0)
== END 2018-05-08 17:27 | disposition home or self-care (01) ==
LOC: EC 14:56
DX: R06.00 Dyspnea, unspecified (principal); F41.9 Anxiety disorder, unspecified; E78.5 Hyperlipidemia, unspecified; F32.9 Major depressive disorder, single episode, unspecified; Z87.891 Personal history of nicotine dependence; Z96.641 Presence of right artificial hip joint; Z79.899 Other long term (current) drug therapy
CPT/HCPCS: 99284; 96374; 96361; 36415; 93005; 80048; 83735; 85027; 83036; 71046; J2060

== ENCOUNTER 2018-05-18 07:05 | Emergency (ER) | payer MEDICARE, OTHER ==
[2018-05-18] MEDS ORDERED: LORazepam 2 MG/ML INJ IV STA (07:30)
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
[2018-05-18 08:03] LABS: Basophils % (A) 0 %; Eosinophils # (A) 0.1 k/uL (0-0.7); Eosinophils % (A) 1 %; HCT 47.8 % (34.0-46.0); Lymphocytes # (A) 1.6 k/uL (1.0-4.8); Lymphocytes % (A) 27 %; MCH 29.9 pg (25.0-35.0); MCHC 33.4 g/dL (31.0-37.0); MCV 89.3 fL (80.0-100.0); Mean Platelet Volume 6.2; Monocytes # (A) 0.5 k/uL (0-1.0); Monocytes % (A) 8 %; Neutrophils # (A) 3.7 k/uL (1.3-7.7); Neutrophils % (A) 62 %; Platelet Count 344 k/uL (150-450); RBC 5.35 m/uL (3.80-5.40); RDW 12.5 % (11.5-15.5); WBC 5.9 k/uL (3.8-10.6)
[2018-05-18 08:21] LABS: ALT 32 U/L (9-52); AST 21 U/L (14-36); Albumin 4.2 g/dL (3.5-5.0); Alkaline Phosphatase 127 U/L (38-126); Anion Gap 9 mmol/L; Blood Urea Nitrogen 14 mg/dL (7-17); Calcium 9.8 mg/dL (8.4-10.2); Carbon Dioxide 30 mmol/L (22-30); Chloride 101 mmol/L (98-107); Glucose 125 mg/dL (74-99); Potassium 3.6 mmol/L (3.5-5.1); Sodium 140 mmol/L (137-145); Total Bilirubin 0.6 mg/dL (0.2-1.3); Total Protein 7.2 g/dL (6.3-8.2)
--- NOTE | 2018-05-18 08:33 | XR ---
EXAMINATION TYPE: XR chest 2V DATE OF EXAM: 05/18/2018 COMPARISON: 05/08/2018 INDICATION: Difficulty breathing history of shortness of breath TECHNIQUE: Frontal and lateral views of the chest are obtained. FINDINGS: The heart size is normal. The pulmonary vasculature is normal. The lungs are clear. IMPRESSION: 1. No acute pulmonary process.
--- NOTE | 2018-05-18 11:22 | CT ---
CT CHEST FOR PULMONARY EMBOLISM. EXAMINATION TYPE: CT chest angio for PE DATE OF EXAM: 05/18/2018 INDICATION: SOB, Chest pain CT DLP: 226.3 mGycm, Automated exposure control for dose reduction was used. CONTRAST: Patient injected with 80 ml mL of Isovue 370. COMPARISON: None TECHNIQUE: CT of the chest is performed on a spiral scan at 2 mm thick sections. Study is performed with intravenous contrast timed for evaluation for pulmonary embolism. This will limit additional po rtions of the evaluation. 3-D MIP images reconstructed by the technologist are reviewed on the compu ter in the coronal and sagittal planes. There is some limitation due to beam hardening artifact. FINDINGS: No persistent filling defects are evident to suggest an acute pulmonary embolism. No mediastinal or hilar adenopathy enlarged by CT criteria is evident. There multiple calcified lymp h nodes present within the mediastinum. The ascending aorta diameter at the level of the main pulmona ry artery is 2.3 cm. The main pulmonary artery diameter at the bifurcation is 2.2 cm. Lung windows are clear. No aortic dissection is evident. Aorta is evaluated to the mid abdominal aort a. Limited CT section through the upper abdomen are unremarkable. IMPRESSIONS: 1. No acute pulmonary embolism.
[2018-05-18 11:47] VITALS: BP 137/60; PULSE 82; RESP 18; TEMP 97.8
== END 2018-05-18 11:30 | disposition home or self-care (01) ==
LOC: EC 07:05
DX: F41.9 Anxiety disorder, unspecified (principal); F32.9 Major depressive disorder, single episode, unspecified; Z87.891 Personal history of nicotine dependence; Z82.49 Family history of ischemic heart disease and other diseases of the circulatory system; Z79.899 Other long term (current) drug therapy; Z96.641 Presence of right artificial hip joint
CPT/HCPCS: 36415; 93005; 85379; 80053; 85025; 71046; 71275; 99285; 96374; J2060; Q9967

== ENCOUNTER → 2018-05-28 | Outpatient (CLI) | payer MEDICARE, OTHER ==
[2018-05-28 18:10] LABS: ALT 48 U/L (8-44); AST 36 U/L (13-35); Albumin/Globulin Ratio 2.17 (1.20-2.10); Alkaline Phosphatase 133 U/L (41-126); Bilirubin, Conjugated <0.20 mg/dL (0.20-0.40); Cholesterol 153 mg/dL (0-200); Globulin 1.8 g/dL (1.6-3.3); LDL Cholesterol,Calculated 49.4 mg/dL (0.0-131.0); Lithium <0.1 mmol/L (1.0-1.2); Total Bilirubin 0.2 mg/dL (0.3-1.2); Total Protein 5.7 g/dL (6.2-8.2)
[2018-05-28 21:00] LABS: Hemoglobin A1C 5.8 % (4.0-6.0)
[2018-05-29 04:50] LABS: Glucose 87 mg/dL (70-110)
== END | disposition home or self-care (01) ==
LOC: LABWHC1 08:34
PROVIDERS: ATTEND Psychiatry & Neurology Psychiatry
DX: Z51.81 Encounter for therapeutic drug level monitoring (principal); Z79.899 Other long term (current) drug therapy
CPT/HCPCS: 36415; 80061; 80076; 80178; 80335; 82565; 82947; 83036; 84439; 84443; 84520